=== PATIENT | female | born 1940 | race Caucasian/White ===

== ENCOUNTER 2019-11-04 21:42 | Inpatient (IN) ==
[2019-11-04 23:14] LABS: Basophils # (auto) 0.01 K/uL (0-0.2); Basophils % (auto) 0.1 %; Eosinophils # (auto) 0.16 K/uL (0-0.5); Eosinophils % (auto) 1.7 %; Hematocrit (blood only) 41.3 % (37-47); Hemoglobin 14.5 g/dL (12.0-16.0); Immature Granulocytes # (auto) 0.05 K/uL (0.00-0.02); Immature Granulocytes % (auto) 0.5 %; Lymphocytes # (auto) 4.42 K/uL (1.2-3.4); Lymphocytes % (auto) 47.2 %; Mean Corpuscular Hemoglobin 31.5 pg (25-34); Mean Corpuscular Hgb Conc 35.1 g/dL (32-36); Mean Corpuscular Volume 89.6 fL (80-100); Mean Platelet Volume 8.9 fL (7.4-10.4); Monocytes # (auto) 1.06 K/uL (0.11-0.59); Monocytes % (auto) 11.3 %; Neutrophils # (auto) 3.67 K/uL (1.4-6.5); Neutrophils % (auto) 39.2 %; Platelet Count 191 K/uL (130-400); RDW Coefficient of Variation 13.3 % (11.5-14.5); RDW Standard Deviation 43.6 fL (36.4-46.3); Red Blood Count 4.61 M/uL (4.2-5.4); White Blood Count 9.37 K/uL (4.8-10.8)
[2019-11-04 23:28] LABS: INR 1.1 (0.9-1.1); Partial Thromboplastin Ratio 1.1; Partial Thromboplastin Time 30.8 Seconds (21.0-31.0)
[2019-11-04 23:31] LABS: Alanine Aminotransferase 32 U/L (12-78); Albumin Level 3.4 gm/dl (3.4-5.0); Aspartate Aminotransferase 30 U/L (15-37); BUN Creatinine Ratio 25.6 (10-20); Blood Urea Nitrogen 18 mg/dl (7-18); Calcium 9.6 mg/dl (8.5-10.1); Carbon Dioxide 28 mmol/L (21-32); Chloride 107 mmol/L (98-107); Est GFR (Non-African American) 84.6; Glucose 98 mg/dl (70-99); Potassium 4.1 mmol/L (3.5-5.1); Sodium 141 mmol/L (136-145)
[2019-11-04 23:36] LABS: Albumin Globulin Ratio 0.9 (0.9-2); Alkaline Phosphatase 93 U/L (45-117); Bilirubin,Total 0.5 mg/dl (0.2-1); Globulin 3.9 gm/dl (2.5-4.0); Total Protein 7.3 gm/dl (6.4-8.2); Troponin I < 0.015 ng/ml (0-0.045)
[2019-11-04] MEDS ORDERED: GADOBUTROL 65ML VIAL IV ONE (23:45)
--- NOTE | 2019-11-05 00:31 | History & Physical Report ---
Date of Service November 05, 2019 Assessment & Plan (1) Left-sided weakness: 78yo C female with IDDM, HTN presenting with acute onset L sided weakness ?TIA, ?Hypoglycemia - patient reports occasional episodes of low blood sugar. MRI with chronic changes, no acute CVA -Admit to medical floor with telemetry monitoring, neuro checks per protocol -Dysphagia screening as needed -Check CTA head and neck -Check Echo -Check lipid panel and HgbA1C -Initiate ASA 81mg po daily and Plavix 75mg po daily for 21 days -Increase Atorvastatin to 40mg po daily -Neurology consultation appreciated -PT/OT appreciated Present on Admission?: Yes (2) Diabetes: Patient with well controlled IDDM, ?possible overmedication - reports A1C of 5.8 and occasional episodes of hypoglycemia -Continue Tresiba 60u qHS -ISS -AIC as above Present on Admission?: Yes (3) Hypertension: Blood pressure slightly elevated -Hold home medications to allow for permissive hypertension Present on Admission?: Yes (4) GERD (gastroesophageal reflux disease): Chronic. Stable -Continue Protonix 40mg po daily F/E/N - Heplock. Electroltyes WNL. CC/Heart healthy diet as tolerated Ppx - Low risk for DVT Code - Full Dispo - Admit to medical with telemetry, complete stroke workup History of Present Illness Chief Complaint: stroke-like symptoms Primary Care Provider: Romero Lemon MD Radha Boucher is a pleasant 78yo C female with history of IDDM, HTN and GERD presenting with stroke-like symptoms. Patient states that she was doing some cleaning this afternoon around 14:00 when her left leg became numb and gave out. Patient reports that she felt weak and dizzy. She sat down to rest and her symptoms improved. She took a shower and was getting ready to go out when she developed numbness and weakness of her LUE and LLE. She states that her speech and vision were unaffected. She was taken to [facility] due to concern for acute CVA. At [facility] they administered ASA 324mg. They performed a CT of the head which was negative. Transferred to [facility] for admission for MRI and Neurology consultation as these services are not available at [facility]. Patient currently states that she feels well. She has some mild weakness in her left hand and arm, otherwise, no complaints. She denies fever/chill s/sweats/headache/visual change/dysuria. Denies chest pain/palpitations/cough/SOB/abdominal pain/nausea/vomiting/constipation. +diarrhea at baseline - unchanged [facility]: ASA 324mg chew, NSS x 500mL, Ceftriaxone 1gm Allergies Allergy/AdvReac Type Severity Reaction Status Date / Time metformin Allergy Mild Rash Verified 11/04/19 22:58 Home Medications Home Medications Medication Instructions Recorded Confirmed Type Areds Eye Drops 1 drp OPB HS 11/04/19 11/04/19 History [place] Q Plus Turmeric 1 tab PO QAM 11/04/19 11/04/19 History amlodipine 10 mg PO QAM 11/04/19 11/04/19 History ascorbic acid (vitamin C) [Vitamin 500 mg PO QAM 11/04/19 11/04/19 History C] atorvastatin 20 mg PO HS 11/04/19 11/04/19 History cholecalciferol (vitamin D3) 25 mcg PO QAM 11/04/19 11/04/19 History [Vitamin D3] diphenhydramine HCl [Unisom 50 mg PO HS PRN 11/04/19 11/04/19 History SleepGels] fexofenadine [Nidhi] 180 mg PO QAM 11/04/19 11/04/19 History insulin aspart U-100 [Novolog See Rx Instructions .ROUTE .COMPLEX 11/04/19 11/04/19 History Flexpen U-100 Insulin] insulin glargine U-300 conc 60 unit SUBCUT HS 11/04/19 11/04/19 History [Toujeo SoloStar U-300 Insulin] lansoprazole 30 mg PO QAM 11/04/19 11/04/19 History magnesium oxide 400 mg PO QAM 11/04/19 11/04/19 History quinapril 20 mg PO QAM 11/04/19 11/04/19 History semaglutide [Ozempic] 1 mg SUBCUT WK 11/04/19 11/04/19 History vit C,G-Ok-wwaan-lutein-zeaxan 1 tab PO BID 11/04/19 11/04/19 History [PreserVision AREDS-2] zinc 50 mg PO QAM 11/04/19 11/04/19 History Past Med/Surg History Medical History (Updated 11/05/19 @ 05:38 by Amalia Roberson DO) Diabetes GERD (gastroesophageal reflux disease) Hypertension Surgical History (Updated 11/05/19 @ 04:10 by Amalia Roberson DO) History of cholecystectomy History of hip surgery History of hysterectomy Family History (Updated 11/05/19 @ 04:10 by Amalia Roberson DO) Other Family history non-contributory Social History Smoking Status: Never smoker Hx Alcohol Use: No Hx Substance Use: No Preferred Language: Bulgarian Communication Ability: Effective Beliefs That Will Affect Care: None Current Living Situation: Spouse Other Information That Helps Us Care for You: No Feels Safe at Home: Yes Safety Concerns: Feels Safe At This Time Assistive Devices: Cane and Denture - Upper Review of Systems Review of Systems: All systems reviewed & are unremarkable except as noted in HPI & below Physical Exam Physical Exam: General: patient resting comfortably, NAD, non-toxic in appearance, AA&O x 4 Skin: warm, dry, intact, small petechiae on left wrist HEENT: NC/AT, PERRL, EOMI, anicteric sclera, conjunctiva without injection, external ear normal to inspection and nontender, +Firm parotid mass on right, nontender to palpation, nares patent, moist mucus membranes, dentures in place, no oropharyngeal lesions, neck supple, trachea midline, no LAD, no thyromegaly, no JVD Heart: +S1/S2, regular, no m/r/g Lungs: equal air entry bilaterally, no rales/rhonchi/wheezes Abd: +BS, soft, NT/ND, no masses/organomegaly/ascites Ext: warm, 2+ pulses in UE/LE bilaterally, no clubbing/cyanosis or edema Neuro: AA&O x 4, speech clear, no facial droop, CN II - XII grossly intact, s ensation to light touch intact, MS 5/5 in RUE/RLE, 4+/5 in LUE/LLE, coordination intact Results & Data Results & Data ([facility]) Vital Signs (Past 12 Hours) Vital Signs Temp Pulse Resp BP Pulse Ox 11/04/19 22:57 80 19 182/83 H 97 11/04/19 22:00 80 21 95 11/04/19 21:54 36.7 C 84 18 194/90 H 96 11/04/19 21:52 87 16 95 11/04/19 21:48 82 19 194/90 H 97 Laboratory Results Lab Results 11/04/19 11/04/19 11/04/19 Range/Units 23:05 23:05 23:05 WBC 9.37 (4.8-10.8) K/uL RBC 4.61 (4.2-5.4) M/uL Hgb 14.5 (12.0-16.0) g/dL Hct 41.3 (37-47) % MCV 89.6 (80-100) fL MCH 31.5 (25-34) pg MCHC 35.1 (32-36) g/dL RDW Std Deviation 43.6 (36.4-46.3) fL RDW Coeff of Artur 13.3 (11.5-14.5) % Plt Count 191 (130-400) K/uL MPV 8.9 (7.4-10.4) fL Immature Gran % (Auto) 0.5 % Neut % (Auto) 39.2 % Lymph % (Auto) 47.2 % [place] % (Auto) 11.3 % Eos % (Auto) 1.7 % Baso % (Auto) 0.1 % Neut # (Auto) 3.67 (1.4-6.5) K/uL Lymph # (Auto) 4.42 H (1.2-3.4) K/uL [place] # (Auto) 1.06 H (0.11-0.59) K/uL Eos # (Auto) 0.16 (0-0.5) K/uL Baso # (Auto) 0.01 (0-0.2) K/uL Immature Gran # (Auto) 0.05 H (0.00-0.02) K/uL PT 12.0 (9.0-12.0) Seconds INR 1.1 (0.9-1.1) APTT 30.8 (21.0-31.0) Seconds PTT Ratio 1.1 Sodium 141 (136-145) mmol/L Potassium 4.1 (3.5-5.1) mmol/L Chloride 107 (98-107) mmol/L Carbon Dioxide 28 (21-32) mmol/L Anion Gap 6.0 (3-11) BUN 18 (7-18) mg/dl Creatinine 0.69 (0.6-1.2) mg/dl Est Cr Clr Drug Dosing Not Reportable Est GFR ( Amer) 98.0 Est GFR (Non-Af Amer) 84.6 BUN/Creatinine Ratio 25.6 H (10-20) Glucose 98 (70-99) mg/dl Calcium 9.6 (8.5-10.1) mg/dl Magnesium 2.0 (1.8-2.4) mg/dl Total Bilirubin 0.5 (0.2-1) mg/dl AST 30 (15-37) U/L ALT 32 (12-78) U/L Alkaline Phosphatase 93 (45-117) U/L Troponin I < 0.015 (0-0.045) ng/ml Total Protein 7.3 (6.4-8.2) gm/dl Albumin 3.4 (3.4-5.0) gm/dl Globulin 3.9 (2.5-4.0) gm/dl Albumin/Globulin Ratio 0.9 (0.9-2) Diagnostic Findings Brain MRI: Per STAT rad - n oacute infarct or other acute intracranial pathology. Right parotid gland bilobed solid lesion measuring 2.5cm. Small collection of faint vessels raising concern for development of venous anomoly or similar lesion at the medial/superior right frontal region. Chronic ischemic small vessel white matter disease. no midline shift or hydrocephalus. Diffuse peripheral atrophy. Right maxilla sinus mucosal thickening. Mastoid air cells are clear. Code Status & VTE Plan Code Status Full code PG Care Time/CCT Total # of Minutes Spent Total Time Spent with Patient: Total time spent is greater than 50% in coordination of care (as documented) at patient's floor/unit and/or counseling p atient: Coding Level of Care Code 56953 Initial Inpt Care Lvl 3 Diagnoses Left-sided weakness R53.1 Diabetes E11.69; Z79.4 Diabetes mellitus complication status: with other specified complication Diabetes mellitus skilled nursing insulin use: with skilled nursing use Diabetes mellitus type: type 2 Hypertension I10 Hypertension type: essential hypertension GERD (gastroesophageal reflux disease) K21.9 Esophagitis presence: esophagitis presence not specified (1) Diabetes Diabetes mellitus complication status: with other specified complication Diabetes mellitus skilled nursing insulin use: with skilled nursing use Diabetes mellitus type: type 2 Qualified Code(s): E11.69 - Type 2 diabetes mellitus with other specified complication; Z79.4 - buttermaker helper (current) use of insulin (2) GERD (gastroesophageal reflux disease) Esophagitis presence: esophagitis presence not specified Qualified Code(s): K21.9 - Gastro-esophageal reflux disease without esophagitis (3) Hypertension Hypertension type: essential hypertension Qualified Code(s): I10 - Essential (primary) hypertension
--- NOTE | 2019-11-05 00:51 | Emergency Department Note ---
History of Present Illness General Chief complaint: TIA Symptoms Time Seen by Provider: 11/04/19 21:48 Source: patient, family ( is at the bedside) and other (Transferring physician) Mode of arrival: EMS Limitations: no limitations History of Present Illness This patient comes in after being transferred from [place] [place]. She was seen there and had a full stroke work-up. The ED physician there called and wanted to transfer her here as they have no MRI capability over the weekend and he was concerned that she had had a stroke. This was the patient's request to come here. I did review her work-up from my run which included negative CT and unremarkable labs. There was concern for UTI and she did receive IV Rocephin. She said around 2:00 today it felt like her leg gave out and she felt dizzy after standing up she felt better at one point and then around 4:00 they were going out to eat and she felt like she was weak and numb on her left arm and leg. She says this is gotten significantly better her left arm is now better sh e still has minimal weakness in her left leg. She is had some left back pain at times but some that may be chronic. No difficulty speaking or swallowing. No change in vision or headache. No fall or trauma. Home Medications Home Medications Medication Instructions Recorded Confirmed Type Areds Eye Drops 1 drp OPB HS 11/04/19 11/04/19 History [place] Q Plus Turmeric 1 tab PO QAM 11/04/19 11/04/19 History Ozempic 1 mg SUBCUT WK 11/04/19 11/04/19 History PreserVision AREDS-2 1 tab PO BID 11/04/19 11/04/19 History Toujeo SoloStar U-300 Insulin 60 unit SUBCUT HS 11/04/19 11/04/19 History ascorbic acid (vitamin C) [Vitamin 500 mg PO QAM 11/04/19 11/04/19 History C] cholecalciferol (vitamin D3) 25 mcg PO QAM 11/04/19 11/04/19 History [Vitamin D3] diphenhydramine HCl [Unisom 50 mg PO HS PRN 11/04/19 11/04/19 History SleepGels] fexofenadine 180 mg PO QAM 11/04/19 11/04/19 History insulin aspart U-100 [Novolog See Rx Instructions .ROUTE .COMPLEX 11/04/19 11/04/19 History Flexpen U-100 Insulin] lansoprazole 30 mg PO QAM 11/04/19 11/04/19 History magnesium oxide 400 mg PO QAM 11/04/19 11/04/19 History quinapril 20 mg PO QAM 11/04/19 11/04/19 History zinc 50 mg PO QAM 11/04/19 11/04/19 History aspirin 81 mg PO QAM #30 tab 11/05/19 Rx atorvastatin 40 mg PO HS #30 tab 11/05/19 Rx clopidogrel 75 mg PO QAM #21 tab 11/05/19 Rx Allergies Allergy/AdvReac Type Severity Reaction Status Date / Time metformin Allergy Mild Rash Verified 11/04/19 22:58 Past Med/Surg History Medical History Diabetes GERD (gastroesophageal reflux disease) Hypertension Surgical History History of cholecystectomy History of hip surgery History of hysterectomy Family History Other Family history non-contributory Social History Smoking Status: Never smoker Hx Alcohol Use: No Hx Substance Use: No Preferred Language: Faroese Communication Ability: Effective Beliefs That Will Affect Care: None Current Living Situation: Spouse Feels Safe at Home: Yes Assistive Devices: Cane Review of Systems A total of 10 systems reviewed and were otherwise negative Physical Exam Vital Signs Vital Signs - 24 hr 11/04/19 22:57 Pulse Rate 80 Pulse Rate from SpO2 Sensor 79 Respiratory Rate 19 Blood Pressure 182/83 H Blood Pressure Mean 105 Pulse Oximetry 97 General: Well developed well nourished female who appears in no acute distress, breathing comfortably on room air. Normal speech. Alert and orient x3 HEENT: Normal cephalic atraumatic. Pupils are equal round and reactive to light. Extraocular movements are intact. Oropharynx is pink with moist mucous membranes. No swelling of the mouth lips or tongue. No facial asymmetry or droop Neck: Supple with a midline trachea. No meningeal signs or stiffness, no JVD or bruits. No Stridor. Chest: Clear to auscultation bilaterally. No wheezes or rhonchi. No increased work of breathing. Heart: Regular rate and rhythm without murmurs or gallops. Abdomen: Soft nontender, nondistended without rebound guarding or rigidity. Extremities: No cyanosis clubbing or edema. No calf tenderness or assymetry Spine/Back. Non tender to palpation. No CVA tenderness Skin: Good turgor without rashes. Neurologic exam: Cranial nerves two through 12 are intact. Motor and sensation are intact and symmetrical throughout with the exception of mild weakness in the left hip/lower extremity. The left upper extremity is now normal. Course Administered Medications Discontinued Medications Aspirin (Aspirin 81 Mg Ectab) 81 mg PO [facility] Stop: 12/05/19 08:59 Last Admin: 11/05/19 07:53 Dose: 81 mg Documented by: [id number] Clopidogrel Bisulfate (Clopidogrel Bisulfate 75 Mg Tab) 75 mg PO [facility] Stop: 12/05/19 08:59 Last Admin: 11/05/19 07:53 Dose: 75 mg Documented by: [id number] Enalapril Maleate (Enalapril Maleate 10 Mg Tab) 10 mg PO NOW ONE Stop: 11/05/19 11:46 Last Admin: 11/05/19 11:35 Dose: 10 mg Documented by: [id number] Gadobutrol (Gadobutrol 65ml Vial) 10 ml IV ONCE ONE Stop: 11/04/19 23:46 Last Admin: 11/04/19 23:45 Dose: 10 ml Documented by: [id number] Insulin Aspart (Insulin Aspart 100 Units/Ml 3 Ml Pen) 0 units SC [facility] Stop: 12/05/19 07:29 Last Admin: 11/05/19 12:36 Dose: 10 units Documented by: [id number] Cosigned by: [id number] Admin: 11/05/19 08:09 Dose: 4 units Documented by: [id number] Cosigned by: [id number] Ioversol (Optiray 320 125ml) 120 ml IV ONCE ONE Stop: 11/05/19 07:45 Last Admin: 11/05/19 07:44 Dose: 120 ml Documented by: [id number] Pantoprazole Sodium (Pantoprazole 40 Mg Tab) 40 mg PO [facility] Stop: 12/05/19 08:59 Last Admin: 11/05/19 07:53 Dose: 40 mg Documented by: [id number] Medical Decision Making Differential Diagnosis CVA, TIA, UTI, sepsis, electrolyte or metabolic abnormality, cardiac disease Medical Records Attestation: I reviewed the patient's medical records. Home Medications Current Medication List: was personally reviewed by me Laboratory Data Attestation: I reviewed the patient's lab results. Result diagrams: 11/05/19 05:30 11/05/19 05:34 Lab Results 11/04/19 11/04/19 11/04/19 Range/Units 23:05 23:05 23:05 WBC 9.37 (4.8-10.8) K/uL RBC 4.61 (4.2-5.4) M/uL Hgb 14.5 (12.0-16.0) g/dL Hct 41.3 (37-47) % MCV 89.6 (80-100) fL MCH 31.5 (25-34) pg MCHC 35.1 (32-36) g/dL RDW Std Deviation 43.6 (36.4-46.3) fL RDW Coeff of Artur 13.3 (11.5-14.5) % Plt Count 191 (130-400) K/uL MPV 8.9 (7.4-10.4) fL Immature Gran % (Auto) 0.5 % Neut % (Auto) 39.2 % Lymph % (Auto) 47.2 % [place] % (Auto) 11.3 % Eos % (Auto) 1.7 % Baso % (Auto) 0.1 % Neut # (Auto) 3.67 (1.4-6.5) K/uL Lymph # (Auto) 4.42 H (1.2-3.4) K/uL [place] # (Auto) 1.06 H (0.11-0.59) K/uL Eos # (Auto) 0.16 (0-0.5) K/uL Baso # (Auto) 0.01 (0-0.2) K/uL Immature Gran # (Auto) 0.05 H (0.00-0.02) K/uL PT 12.0 (9.0-12.0) Seconds INR 1.1 (0.9-1.1) APTT 30.8 (21.0-31.0) Seconds PTT Ratio 1.1 Sodium 141 (136-145) mmol/L Potassium 4.1 (3.5-5.1) mmol/L Chloride 107 (98-107) mmol/L Carbon Dioxide 28 (21-32) mmol/L Anion Gap 6.0 (3-11) BUN 18 (7-18) mg/dl Creatinine 0.69 (0.6-1.2) mg/dl Est Cr Clr Drug Dosing Not Reportable Est GFR ( Amer) 98.0 Est GFR (Non-Af Amer) 84.6 BUN/Creatinine Ratio 25.6 H (10-20) Glucose 98 (70-99) mg/dl Calcium 9.6 (8.5-10.1) mg/dl Magnesium 2.0 (1.8-2.4) mg/dl Total Bilirubin 0.5 (0.2-1) mg/dl AST 30 (15-37) U/L ALT 32 (12-78) U/L Alkaline Phosphatase 93 (45-117) U/L Troponin I < 0.015 (0-0.045) ng/ml Total Protein 7.3 (6.4-8.2) gm/dl Albumin 3.4 (3.4-5.0) gm/dl Globulin 3.9 (2.5-4.0) gm/dl Albumin/Globulin Ratio 0.9 (0.9-2) Imaging Data Radiologist's Impression: Stat rad MRI: ECG Data Attestation: I personally reviewed and interpreted this ECG as follows: Indication: + chest pain Rate (beats per minute): 81 Rhythm: + normal sinus ECG Intervals/blocks: no Normal QRS, no Normal QT and no Normal [place] ECG [place]: + Left axis deviation ECG ST segments: + Normal ST segments ECG Findings: no PACs and no PVCs Comparison ECG Date: no prior available Blood Pressure Blood Pressure Findings: Elevated blood pressure Blood Pressure Disposition: elevated BP felt to be situational MDM Narrative This patient comes in transfer from [facility] for further treatment and evaluation of strokelike symptoms. She is outside of the TPA window and her symptoms also got significantly better and do not feel she is a TPA candidate. She has already had her work-up and do not feel we need an acute stoke alert. IV access was established with placed on a monitored bed. She has no acute electrolyte or metabolic abnormalities she has nothing she has acute coronary syndrome or arrhythmia. EKG is nonischemic appearing. I did order an MRI and I did consult [facility] hospitalist Dr. Roberson to see her for admission. Impression & Plan Left-sided weakness, Cerebrovascular accident, Diabetes, Acute UTI (urinary tract infection) Discharge Plan Visit Data Chief Complaint: TIA Symptoms ED Provider: Basilio Patterson Discharge Problem: Left-sided weakness, Cerebrovascular accident, Diabetes, Acute UTI (urinary tract infection) Patient Disposition: Admitted As Inpatient Discharge Instructions Interventions: ED Discharge Assessment Last Done: 11/05/19 01:39 Discharge Problem: Diabetes Qualifiers: Diabetes mellitus type: type 2 Diabetes mellitus senior care insulin use: with senior care use Diabetes mellitus complication status: with other specified complication Qualified Code(s): E11.69 - Type 2 diabetes mellitus with other specified complication
[2019-11-05] MEDS ORDERED: DEXTROSE 50% 50 ML SYRINGE IV PRN (02:10)
[2019-11-05] MEDS ORDERED: GLUCOSE 10 TABS/TUBE PO PRN (02:10)
[2019-11-05] MEDS ORDERED: CARBOHYDRATES FOR HYPOGLYCEMIA PO PRN (02:10)
[2019-11-05] MEDS ORDERED: GLUCOSE 40% GEL 15 GM TUBE PO PRN (02:10)
[2019-11-05] MEDS ORDERED: ACETAMINOPHEN 325 MG TAB PO PRN (02:10)
[2019-11-05] MEDS ORDERED: GLUCAGON FOR INJ 1 MG VIAL SQ PRN (02:10)
[2019-11-05 06:01] LABS: Basophils # (auto) 0.01 K/uL (0-0.2); Basophils % (auto) 0.1 %; Eosinophils # (auto) 0.16 K/uL (0-0.5); Eosinophils % (auto) 1.9 %; Hematocrit (blood only) 41.4 % (37-47); Hemoglobin 14.4 g/dL (12.0-16.0); Immature Granulocytes # (auto) 0.03 K/uL (0.00-0.02); Immature Granulocytes % (auto) 0.3 %; Lymphocytes # (auto) 3.92 K/uL (1.2-3.4); Lymphocytes % (auto) 45.6 %; Mean Corpuscular Hemoglobin 31.2 pg (25-34); Mean Corpuscular Hgb Conc 34.8 g/dL (32-36); Mean Corpuscular Volume 89.6 fL (80-100); Mean Platelet Volume 9.2 fL (7.4-10.4); Monocytes # (auto) 1.09 K/uL (0.11-0.59); Monocytes % (auto) 12.7 %; Neutrophils # (auto) 3.38 K/uL (1.4-6.5); Neutrophils % (auto) 39.4 %; Platelet Count 184 K/uL (130-400); RDW Coefficient of Variation 13.2 % (11.5-14.5); RDW Standard Deviation 43.3 fL (36.4-46.3); Red Blood Count 4.62 M/uL (4.2-5.4); White Blood Count 8.59 K/uL (4.8-10.8)
[2019-11-05 06:27] LABS: BUN Creatinine Ratio 23.8 (10-20); Calcium 8.8 mg/dl (8.5-10.1); Creatinine Clr Calc Pharmacy 83.3 ml/min; Est GFR (Non-African American) 87.1; Potassium 3.9 mmol/L (3.5-5.1)
[2019-11-05] MEDS ORDERED: OPTIRAY 320 125ml IV ONE (07:44)
[2019-11-05] MEDS: INSULIN ASPART 100 UNITS/ML 3 ML PEN SC SCH ×2 (08:09→12:36)
--- NOTE | 2019-11-05 08:40 | Magnetic Resonance Report ---
MR brain wo/w con HISTORY: 78 years-old Female left sided weakness acute strokelike symptoms COMPARISON: None TECHNIQUE: Multiplanar multisequence MRI of the brain was obtained both with and without the use of 1 0.0 mL Gadavist FINDINGS: Well Servicing Rig Operator localizer images demonstrate no gross extracranial abnormality. There is no restricted diffusio n to suggest acute or subacute infarct. Midline structures including the corpus callosum, brainstem, optic chiasm, pituitary and pineal glands appear unremarkable on the sagittal T1 series. No cerebella r tonsillar herniation. Degenerative changes are noted involving the imaged cervical. No acute intracranial hemorrhage, midline shift, abnormal extra-axial collection, hydrocephalus or in tracranial mass. Mild age-related involutional changes. Mild to moderate scattered T2/FLAIR hyperinte nsities about the white matter are suggestive of chronic microvascular ischemic disease. Probable dev elopmental venous anomaly of the parafalcine right frontal lobe, image 17 series 8 and image 11 serie s 9. No additional abnormal intracranial enhancement. There is an indeterminate bilobed 2.7 x 1.8 cm T1 hyperintense, T2 hypointense lesion involving the superficial lobe of the right parotid with a sma ll area of 10 mm mural enhancement noted along the inferior lateral margin. Major vascular flow voids and sagittal venous sinuses appear patent. Mastoid air cells are clear. There is mild mucosal thicke nkechi of the right maxillary sinus. Skull and orbits are unremarkable. IMPRESSION: 1. No acute intracranial abnormality, specifically there is no acute or subacute infarct. 2. Mild age-related involutional changes with mild to moderate chronic microvascular ischemic disease . 3. No abnormal intracranial enhancement. 4. Bilobed 2.7 x 1.8 cm lesion involves the superficial lobe right parotid gland with a small enhanci ng nodular mural component along the inferior lateral margin. Correlation with ultrasound recommended . ACT 112: Negative or not required by law. The above report was generated using voice recognition software. It may contain grammatical, syntax o r spelling errors. Electronically signed by: Fred Parks M.D. 11/05/2019 8:38 AM
[2019-11-05] MEDS ORDERED: ASPIRIN 81 MG ECTAB PO SCH (09:00)
[2019-11-05] MEDS ORDERED: CLOPIDOGREL BISULFATE 75 MG TAB PO SCH (09:00)
[2019-11-05] MEDS ORDERED: PANTOprazole 40 MG TAB PO SCH (09:00)
--- NOTE | 2019-11-05 10:05 | Neurology Consultation ---
Date of Consultation November 05, 2019 Assessment & Plan (1) TIA (transient ischemic attack): TIA probably localizing to either the right cerebral hemisphere or right consuelo-alejandra. Stroke risk factors for this patient include diabetes mellitus, hypertension, and dyslipidemia. She has not been taking daily low-dose aspirin. She has been notably hypertensive during this hospitalization. She is currently without focal neurological deficits and appears to be neurologically stable. I agree with additional testing as ordered including CT angiography of the head and neck and echocardiography. If patient does have a significant stenosis/vascular lesion on angiography would recommend consultation with vascular surgery. Agree with initiating dual antiplatelet therapy including daily low-dose aspirin and clopidogrel 75 mg/day for the next 3 weeks. After which, discontinue clopidogrel and continue with aspirin 81 mg/day. Agree with increasing atorvastatin dosage. Continue to monitor patient's hypertension. Allow for permissive hypertension for the time being, systolic blood pressure 140 to 160 mmHg. Gradually reintroduce outpatient antihypertensive therapy prior to discharge. She will need additional outpatient follow-up with her PCP for management of her blood pressure and diabetes mellitus. Right parotid lesion identified on MRI. Patient indicates that her PCP is aware of this lesion. Ultrasound correlation has been recommended by radiology. Additional follow-up could be done in the outpatient setting including imaging and ENT evaluation. This patient probably does not require additional outpatient neurology follow- up. Please contact me if I may be of further assistance. History of Present Illness Reason for Consultation: TIA Requesting Physician: Amalia Roberson DO Attending Physician: Rupinder Gardner MD History of Present Illness The patient is a 78-year-old female with a chief complaint of left-sided weakness. Her symptoms began at around 2 PM yesterday while standing up at home. She recalls that her left leg suddenly became weak, she had difficulty standing and sat down for a few moments. She does not recall experiencing any other associated symptoms at that time. The weakness resolved within a few minutes. She then went about her day and had gone to an outdoor republican/family function. Upon arriving at her destination she reports that her left leg again felt considerably weak and she had difficulty getting down from her truck. She also has some associated weakness of the left arm but does not recall any other associated symptoms such as vision loss, change in speech, facial weakness, headache, vertigo, or dizziness. A family member brought her to [facility] where she had a CT of the head completed that was reportedly unremarkable. Her left-sided weakness was persistent and she was subsequently transferred to [facility] for a more comprehensive stroke evaluation. The patient's weakness was felt to be mild at the time of her assessment in our emergency department. She was outside of the TPA window and her symptoms were improving by the time she was assessed at the [facility] emergency department. She did have a brain MRI completed that was negative for acute or subacute stroke. Imaging described in further detail below. Past medical history notable for insulin-dependent diabetes mellitus which appears to be well controlled and hypertension. He was notably hypertensive at the time of her assessment in our emergency department with a blood pressure of 194/90. Blood pressure this morning remains elevated at 184/84. The patient reports that she is currently asymptomatic. She denies any residual left-sided weakness of the arm or leg. She continues to deny any associated symptoms such as change in speech, difficulty swallowing, headache, vision loss, vertigo, or other focal neurological symptomatology. She denies a history of stroke or TIA previously. She endorses a history of chronic intermittent low back pain and has had some injections previously, no history of spinal surgery. She denies a history of significant diabetic peripheral neuropathy and does not appear to be taking any medication for chronic neuropathic pain. She does take Lipitor and antihypertensives. She denies a history of significant cardiac history such as ID, atrial fibrillation, or congestive heart failure. She admits that she is not taking daily low-dose aspirin although has apparently been told to do so in the past. Allergies Allergy/AdvReac Type Severity Reaction Status Date / Time metformin Allergy Mild Rash Verified 11/04/19 22:58 Home Medications Home Medications Medication Instructions Recorded Confirmed Type Areds Eye Drops 1 drp OPB HS 11/04/19 11/04/19 History Mamou Q Plus Turmeric 1 tab PO QAM 11/04/19 11/04/19 History amlodipine 10 mg PO QAM 11/04/19 11/04/19 History ascorbic acid (vitamin C) [Vitamin 500 mg PO QAM 11/04/19 11/04/19 History C] atorvastatin 20 mg PO HS 11/04/19 11/04/19 History cholecalciferol (vitamin D3) 25 mcg PO QAM 11/04/19 11/04/19 History [Vitamin D3] diphenhydramine HCl [Unisom 50 mg PO HS PRN 11/04/19 11/04/19 History SleepGels] fexofenadine [Nidhi] 180 mg PO QAM 11/04/19 11/04/19 History insulin aspart U-100 [Novolog See Rx Instructions .ROUTE .COMPLEX 11/04/19 11/04/19 History Flexpen U-100 Insulin] insulin glargine U-300 conc 60 unit SUBCUT HS 11/04/19 11/04/19 History [Toujeo SoloStar U-300 Insulin] lansoprazole 30 mg PO QAM 11/04/19 11/04/19 History magnesium oxide 400 mg PO QAM 11/04/19 11/04/19 History quinapril 20 mg PO QAM 11/04/19 11/04/19 History semaglutide [Ozempic] 1 mg SUBCUT WK 11/04/19 11/04/19 History vit C,T-Hh-diyvr-lutein-zeaxan 1 tab PO BID 11/04/19 11/04/19 History [PreserVision AREDS-2] zinc 50 mg PO QAM 11/04/19 11/04/19 History Patient History Medical History Diabetes GERD (gastroesophageal reflux disease) Hypertension Surgical History History of cholecystectomy History of hip surgery History of hysterectomy Family History Other Family history non-contributory Social History Smoking Status: Never smoker Hx Alcohol Use: No Hx Substance Use: No Preferred Language: [place] Islander Communication Ability: Effective Beliefs That Will Affect Care: None Current Living Situation: Spouse Other Information That Helps Us Care for You: No Feels Safe at Home: Yes Safety Concerns: Feels Safe At This Time Assistive Devices: Cane Review of Systems Constitutional: no fever and no chills Eyes: no blind spots and no diplopia Ear, Nose, Mouth, Throat: no ear pain and no hearing loss Respiratory: no cough and no dyspnea Cardiovascular: no chest pain and no palpitations Gastrointestinal: no nausea and no vomiting Genitourinary: no dysuria Musculoskeletal: as per Subjective / HPI and + back pain; no myalgia Integumentary: no rash and no lesions Neurologic: as per Subjective / HPI and + localized weakness; no tremor(s), no seizure-like activity, no syncope, no headache(s), no abnormal speech, no confusion and no memory loss Psychiatric: no depression and no anxiety Hematologic / Lymphatic: no easy bleeding and no easy bruising Exam (Neuro) Constitutional: well developed and well nourished; no acute distress Eyes: normal visual boone by confrontation, PERRL, normal accommodation and EOM intact bilaterally; no fundoscopic abnormality, no nystagmus and no papilledema Cardiovascular: Vessels: normal carotid upstroke; no carotid bruit Neurologic: Oriented to:: Person, Place and Time Memory: Short Term Intact and Remote Intact Attention: Span Intact and Concentration Intact Language: Naming Objects and Repeating Phrases Speech Fluency: negative Dysarthria Speech Aphasia: negative Aphasia Fund of Knowledge: Current Events, Past History and Vocabulary Cranial Nerves: Normal II (Visual boone full to confrontation, visual acuity normal), III, IV, (Pupils equal round reactive to light and accommodation, eye movements normal), V (Facial sensation intact), VII (There is no facial droop or weakness), VIII (Hearing intact), IX, X (Palate elevates to midline), XI (Shoulder shrug intact) and XII (Tongue protrudes to midline) Motor Strength: Normal Lower Extremities and Normal Upper Extremities; negative Pronator Drift Motor Tone: Normal Lower Extremities and Normal Upper Extremities Muscle Bulk/Involuntary Movements: No Involuntary Movements; negative Muscle Atrophy Sensation: Light Touch Intact, Pain/Temperature Intact, Vibration Intact and Proprioception Intact Coordination: Normal; negative Limited Balance, Dysdiadochokinesia, Finger-Nose Abnormal and Heel-Arcos Abnormal Deep Tendon Reflexes: Rt Triceps: 2+, Lt Triceps: 2+, Rt Biceps: 2+, Lt Biceps: 2+, Rt Brachioradialis: 2+, Lt Brachioradialis: 2+, Rt Patellar: 2+, Lt Patellar: 2+, Rt Ankle: 1+ and Lt Ankle: 1+ Special Tests: negative Babinski Present Gait: Normal Station and Gait Results & Data ([facility]) Vital Signs (Past 12 Hours) Vital Signs Temp Pulse Pulse Resp BP BP Pulse Ox 11/05/19 07:43 85 11/05/19 07:32 36.5 C 18 L 184/84 H 95 11/05/19 04:02 36.5 C 80 18 151/95 H 96 11/05/19 01:35 36.5 C 80 20 181/93 H 96 11/05/19 01:06 18 162/78 H 96 11/04/19 22:57 80 19 182/83 H 97 11/04/19 22:00 80 21 95 11/04/19 21:54 36.7 C 84 18 194/90 H 96 11/04/19 21:52 87 16 95 11/04/19 21:48 82 19 194/90 H 97 Laboratory Results WBC 8.59, hemoglobin 14.4, hematocrit 41.4, platelet count 184, sodium 140, potassium 3.9, BUN 15, creatinine 0.63, glucose 118, triglycerides 199, cholesterol 176, LDL 99, VLDL 40, HDL 37 Diagnostic Findings Brain MRI with and without contrast, completed at [facility] yesterday is negative for acute or subacute infarct. There is mild to moderate chronic microvascular ischemic disease. No abnormal postcontrast enhancement. There is a bilobed 2.7 x 1.8 cm lesion within the superior lobe of the right p arotid gland with a small enhancing nodular mural component along the inferior lateral margin. Correlation with ultrasound was recommended. I reviewed the images as well as the radiologist's interpretation of this test. An electrocardiogram reveals a normal sinus rhythm, 81 bpm. Coding Level of Care Code 03582 Initial Inpt Care Lvl 3 Diagnoses TIA (transient ischemic attack) G45.9
--- NOTE | 2019-11-05 11:32 | Discharge Summary ---
Date of Service November 05, 2019 Admission HPI Per Admitting Provider Radha Boucher is a pleasant 78yo C female with history of IDDM, HTN and GERD presenting with stroke-like symptoms. Patient states that she was doing some cleaning this afternoon around 14:00 when her left leg became numb and gave out. Patient reports that she felt weak and dizzy. She sat down to rest and her symptoms improved. She took a shower and was getting ready to go out when she developed numbness and weakness of her LUE and LLE. She states that her speech and vision were unaffected. She was taken to [facility] due to concern for acute CVA. At [place] they administered ASA 324mg. They performed a CT of the head which was negative. Transferred to [facility] for admission for MRI and Neurology consultation as these services are not available at [place]. Patient currently states that she feels well. She has some mild weakness in her left hand and arm, otherwise, no complaints. She denies fever/chills/sweats/headache/visual change/dysuria. Denies chest pain/palpitations/cough/SOB/abdominal pain/nausea/vomiting/constipation. +diarrhea at baseline - unchanged [facility]: ASA 324mg chew, NSS x 500mL, Ceftriaxone 1gm Admission Exam Per Admitting Provider General: patient resting comfortably, NAD, non-toxic in appearance, AA&O x 4 Skin: warm, dry, intact, small petechiae on left wrist HEENT: NC/AT, PERRL, EOMI, anicteric sclera, conjunctiva without injection, external ear normal to inspection and nontender, +Firm parotid mass on right, nontender to palpation, nares patent, moist mucus membranes, dentures in place, no oropharyngeal lesions, neck supple, trachea midline, no LAD, no thyromegaly, no JVD Heart: +S1/S2, regular, no m/r/g Lungs: equal air entry bilaterally, no rales/rhonchi/wheezes Abd: +BS, soft, NT/ND, no masses/organomegaly/ascites Ext: warm, 2+ pulses in UE/LE bilaterally, no clubbing/cyanosis or edema Neuro: AA&O x 4, speech clear, no facial droop, CN II - XII grossly intact, sensation to light touch intact, MS 5/5 in RUE/RLE, 4+/5 in LUE/LLE, coordination intact Principal Diagnosis Transient ischemic attack Discharge Exam Constitutional WD/WN, vitals as above no acute distress Eyes PERRL, conjunctivae normal, anicteric sclerae Neck trachea midline, no thyromegaly Respiratory normal respiratory effort, lungs clear to auscultation Cardiovascular RRR, no murmur, no edema Heart Sounds: normal S1 and normal S2; no gallop, no murmur and no cardiac rub Gastrointestinal (Abdomen) normal bowel sounds, soft, nontender, no hepatosplenomegaly Musculoskeletal no cyanosis or clubbing, extremities motor strength 5/5 Skin no rashes, warm and dry Psychiatric A+Ox3, euthymic affect Discharge Data Allergies Allergy/AdvReac Type Severity Reaction Status Date / Time metformin Allergy Mild Rash Verified 11/04/19 22:58 Consultations 11/05/19 02:10 Consult Neurology Routine Ordered Studies 11/04/19 22:25 MR brain wo/w con Stat 11/05/19 02:10 CT angio neck with con Routine 11/05/19 02:10 CT angio head wo/w Routine Hospital Course (1) TIA (transient ischemic attack): Radha Boucher is a 78-year-old female with IDDM, HTN, and GERD who presented with left-sided weakness and numbness of both extremities as well as dizziness. Speech and vision were unaffected. Head CT at [facility] was negative and was transferred to [facility] for further evaluation. Transient ischemic attack - MRI head: - No acute intracranial abnormality, specifically there is no acute or subacute infarct - Bilobed 2.7 x 1.8 cm lesion involves the superficial lobe right parotid gland with a small enhancing nodular mural component along the inferior lateral margin. Correlation with ultrasound recommended - CTA head and neck: - No stenosis or dissection within the major vessels of the neck - Central vessel occlusion, intraluminal thrombus or intracranial aneurysm. - Transthoracic echo: - Left ventricle normal in size - EF = 60-65% - Mild concentric LVH - Grade I diastolic dysfunction - No significant valvular disease - EKG: Normal sinus rhythm, Left axis deviation, Moderate voltage criteria for LVH (may be normal variant) - Lipid panel: WNL except triglycerides 199 - Neurology consultation: - currently without focal neurological deficits and appears to be neurologically stable - Agree with initiating dual antiplatelet therapy including daily low-dose aspirin and clopidogrel 75 mg/day for the next 3 weeks. After which, discontinue clopidogrel and continue with aspirin 81 mg/day. - This patient probably does not require additional outpatient neurology follow-up - Initiated ASA 81mg PO daily and Plavix 75mg PO daily x 21 days, then continue ASA only as per neuro recommendation above - Increased Atorvastatin to 40mg PO daily - PT evaluated patient--no needs identified - Consider evaluation for sleep apnea as outpatient with PCP Hypertension - Blood pressure elevated - Held home medications to allow for permissive hypertension - Continued hypertension medications upon d/c Diabetes - Patient with well controlled IDDM--A1C 6.1 - Continued Tresiba 60u qHS GERD (gastroesophageal reflux disease) - Chronic, stable - Continued Protonix 40mg PO daily FENGI - Electrolytes WNL, Diabetic/Heart healthy diet Code - Full Dispo - Home (2) Diabetes: (3) GERD (gastroesophageal reflux disease): (4) Hypertension: (5) Left-sided weakness: Total Time Total Time Spent Total Time Spent (In Minutes): see Attending attestation Discharge Plan Discharge Items Patient Disposition: Home - Self-Care Reason For Visit: STROKE LIKE SYMPTOMS Discharge Diagnosis: TIA Activity: Per Instructions section Non-emergency contact: Primary Care Provider Call non-emergency contact if: your symptoms worsen Follow-up/Referrals: Romero Lemon MD [Primary Care Provider] - Diet: Carb Consistent or DM2 and Heart Healthy Addtl Attending Provider Instructions: You came to [facility] due to numbness and weakness of your left arm and leg, as well as dizziness. You had a negative head CT at [facility] as well as negative head MRI, head & neck CT angiogram, and negative Echocardiogram at [facility]. You were deemed to have had a TIA, also known as a "mini stroke". You will take a baby aspirin and Plavix daily for 3 weeks, after which you will stop Plavix and continue only with the aspirin. Your Lipitor dose will also be increased. Please follow up with your primary care provider as soon as possible to discuss continued care and management of your medications. We also recommend that you discuss testing for sleep apnea with your primary care provider. Pending Studies at Discharge: No Stand-Alone Forms: [employer], Smoking Cessation Medications and DC Order Prescriptions: New atorvastatin 40 mg Tablet 40 mg PO HS Qty: 30 RF: 0 clopidogrel 75 mg Tablet 75 mg PO QAM Qty: 21 RF: 0 aspirin 81 mg Tablet,Delayed Release (Dr/Ec) 81 mg PO QAM Qty: 30 RF: 0 Continued Areds Eye Drops 1 drp OPB HS RF: 0 diphenhydramine HCl [Unisom SleepGels] 50 mg Capsule 50 mg PO HS PRN (Reason: Sleep) RF: 0 fexofenadine 180 mg Tablet 180 mg PO QAM RF: 0 ascorbic acid (vitamin C) [Vitamin C] 500 mg Tablet 500 mg PO QAM RF: 0 lansoprazole 30 mg capsule,delayed release(DR/EC) 30 mg PO QAM RF: 0 zinc 50 mg Tablet 50 mg PO QAM RF: 0 quinapril 20 mg tablet 20 mg PO QAM RF: 0 cholecalciferol (vitamin D3) [Vitamin D3] 25 mcg (1,000 unit) Capsule 25 mcg PO QAM RF: 0 insulin aspart U-100 [Novolog Flexpen U-100 Insulin] 100 unit/mL (3 mL) Insulin Pen See Rx Instructions .ROUTE .COMPLEX RF: 0 PreserVision AREDS-2 [id number] Capsule 1 tab PO BID RF: 0 Toujeo SoloStar U-300 Insulin 300 unit/mL (1.5 mL) insulin pen 60 unit SUBCUT HS RF: 0 Ozempic 1 mg/dose (2 mg/1.5 mL) pen injector 1 mg SUBCUT WK RF: 0 magnesium oxide 400 mg magnesium Tablet 400 mg PO QAM RF: 0 Ewing Q Plus Turmeric 1 tab PO QAM RF: 0 Discontinued atorvastatin 20 mg tablet 20 mg PO HS RF: 0 Discharge Orders: Discharge Order (Routine); Ordered 11/05/19 Ordered By: Ike Smyth Admission Data Admit Date/Time: 11/04/19 23:45 Attending Provider: Rupinder Gardner Admit Provider: Amalia Roberson Primary Care Provider: Romero Lemon Other Providers: Basilio Jackson ; Amalia Roberson Other Interventions: Discharge Summary Assessment (RN) Last Done: 11/05/19 13:03 Supervising Physician Co-Signing Physician Notes Resident Physician Supervision Note: I independently interviewed and examined the patient and verified the braden history and physical, reviewed labs and image studies, discussed the case with the resident Dr. Gautam and agree with the findings and care plan. Resident Activity Tracking Resident Involvement: Resident Care Provided Care Provided: Adult [facility] Medicine
--- NOTE | 2019-11-05 11:33 | Electrocardiogram Report ---
Test Reason : Blood Pressure : / mmHG Vent. Rate : 081 BPM Atrial Rate : 081 BPM P-R Int : 182 ms QRS Dur : 108 ms QT Int : 406 ms P-R-T Axes : 047 -39 052 degrees QTc Int : 471 ms Normal sinus rhythm Left axis deviation Moderate voltage criteria for LVH, may be normal variant Abnormal ECG No previous ECGs available Confirmed by Crow Amaya ([id number]) on 11/05/2019 11:33:31 AM Referred By: REFERRED SELF Confirmed By:Crow Amaya
[2019-11-05] MEDS ORDERED: ENALAPRIL MALEATE 10 MG TAB PO ONE (11:45)
--- NOTE | 2019-11-05 11:46 | CT Scan Report ---
CT ANGIOGRAPHY OF THE NECK WITH CONTRAST CLINICAL HISTORY: ?CVA COMPARISON STUDY: No previous studies for comparison. Technique: CT angiography of the carotid and vertebral arteries was obtained using Opt[employer] 320 IV and 3D reconstruction on an independent workstation. NASCET criteria was utilized. Automated exposure c ontrol was utilized for the study. A dose lowering technique was utilized adhering to the principles of ALARA. Findings: Lung apices are clear. A 2.5 cm right parotid mass within the superficial lobe is partially imaged on this exam. This is shown on MRI November 04, 2019. There is no cervical lymphadenopathy. A few small thyroid nodules measure up to 1 cm. There is no cervical spine fracture. No suspicious os seous lesions are noted. There is no significant stenosis within the bilateral common carotid, cervic al internal carotid or vertebral arteries. There is moderate plaque within the left carotid bifurcati on without stenosis. There is no dissection. No aneurysm is noted. There is no intraluminal thrombus. IMPRESSION: 1. No stenosis or dissection within the major vessels of the neck. 2. Moderate plaque within the left carotid bifurcation without stenosis. 3. 2.5 cm right parotid gland lesion. Nonemergent ultrasound is recommended. ACT 112: Negative or not required by law. Electronically signed by: Demarcus Basilio M.D. 11/05/2019 11:45 AM
--- NOTE | 2019-11-05 11:49 | XCELERA ---
[id number] \\[id number]
--- NOTE | 2019-11-05 11:57 | CT Scan Report ---
CT angio head wo/w CLINICAL HISTORY: ?CVA COMPARISON STUDY: MRI of the brain November 04, 2019. TECHNIQUE: Unenhanced and arterial phase imaging of the head was performed. Introduced injection of 1 20 cc of Optiray 320 IV was uneventful. Sagittal and coronal reconstructed reviewed as well as hillary l intensity projections on an independent 3-D workstation. Automated exposure control was utilized fo r the study. A dose lowering technique was utilized adhering to the principles of ALARA. FINDINGS: Note is made of a 2.6 cm bilobed circumscribed hyperdense right parotid gland lesion which demonstrates minimal, if any, enhancement. No acute intracranial hemorrhage, midline shift or mass ef fect is present. Ventricular system is normal. The basilar cisterns are patent. There are no extra-ax ial collections. There are no findings to suggest acute dural sinus thrombosis or acute territorial i nfarct. There are no significant calvarial abnormalities. There is mild mucosal thickening of the rig ht maxillary sinus. The bilateral M1, M2, A1 and A2 segment are patent. There is moderate plaque with in the bilateral cavernous carotids without significant stenosis. No intracranial aneurysm is identif ied. There is no central vessel occlusion. There is mild stenosis of the intracranial portion of the right vertebral artery. Posterior circulation is intact. IMPRESSION: 1. No central vessel occlusion, intraluminal thrombus or intracranial aneurysm. 2. Moderate atherosclerotic plaque within the intracranial vessels. 3. 2.6 cm right parotid gland lesion. Nonemergent parotid ultrasound is recommended. ACT 112: Negative or not required by law. Electronically signed by: Demarcus Basilio M.D. 11/05/2019 11:56 AM
[2019-11-05] MEDS ORDERED: ATORVASTATIN 40 MG TAB PO SCH (21:00)
[2019-11-05] MEDS ORDERED: INSULIN GLARGINE SOLOSTAR 100 UNITS/ML 3 ML PEN SC SCH (21:00)
[2019-11-06 05:58] LABS: Estimated Average Glucose 128 mg/dl; Hemoglobin A1C 6.1 % (4.5-5.6)
[2019-11-06] MEDS ORDERED: INSULIN GLARGINE SOLOSTAR 100 UNITS/ML 3 ML PEN SC SCH (21:00)
== END 2019-11-05 14:26 | disposition home or self-care (01) | DRG 69 ==
LOC: ED 21:42 → SUATTDRO 23:45 → 2S 23:45